=== PATIENT | female | born 1965 | race Caucasian/White ===

== ENCOUNTER 2018-12-02 10:07 | Emergency (ER) | payer MEDICAID ==
[~2018-12-02] VITALS: Ht 162.6 cm; Wt 63.5 kg
[2018-12-02 11:53] LABS: Hematocrit 34.4 % (36.0-46.0); Hemoglobin 11.3 g/dL (12.2-16.2); Mean Corpuscular Hemoglobin 28.6 pg (28.0-32.0); Mean Corpuscular Hgb Conc. 32.9 g/dL (32.0-36.0); Platelet Count (auto) 248 10^3/uL (140-450); Red Blood Cells 3.96 10^6/uL (4.0-5.20); Red Cell Distribution Width 15.8 % (11.8-14.3); White Blood Cell 18.8 10^3/uL (4.4-10.8)
[2018-12-02 12:01] LABS: Basophils % (manual) 0 (0.0-2.0); Blast Cells 0; Eosinophils % (manual) 0 (0-7); Metamyelocytes % 0; Monocytes % (manual) 0 (0-12); Myelocytes % 0; Promyelocytes % 0; Reactive Lymphocytes 0
[2018-12-02 12:06] LABS: Alanine Aminotransferase 19 U/L (13-56); Albumin 1.8 g/dL (3.4-5.0); Anion Gap 10 (5-15); Aspartate Aminotransferase 27 U/L (15-37); BUN/Creatinine Ratio 38.4; Blood Urea Nitrogen 28 mg/dL (7-18); Calcium 8.4 mg/dL (8.5-10.1); Carbon Dioxide 25 mmol/L (21-32); Chloride 90 mmol/L (98-107); GFR African American 108 mL/min; GFR Non-African American 89 mL/min; Glucose 107 mg/dL (74-106); Magnesium 2.2 mg/dL (1.6-2.6); Sodium 125 mmol/L (136-145)
[2018-12-02 12:10] LABS: Alkaline Phosphatase 72 U/L (45-117); Bilirubin, Total 0.6 mg/dL (0.2-1.0); Total Protein 6.7 g/dL (6.4-8.2)
[2018-12-02 12:19] LABS: Potassium 2.8 mmol/L (3.5-5.1)
[2018-12-02 12:56] LABS: Band Neutrophils % (manual) 2; Lymphocytes % (manual) 2 (10.0-50.0)
[2018-12-02] MEDS ORDERED: SODIUM CHLORIDE 0.9% 1,000 ML IV ONE ×2 (13:43)
[2018-12-02] MEDS ORDERED: POTASSIUM CHL 10% (20 MEQ/15ML) 15ml ORAL SOLN PO ONE (14:30)
[2018-12-02] MEDS ORDERED: cefTRIAXone 1GM/50ML D5W 50 ML IV ONE (14:45)
[2018-12-02 18:18] VITALS: BP 131/77
== END 2018-12-02 18:25 | disposition home or self-care (01) ==
LOC: EDBD 10:07 → ER 10:07
DX: J40 Bronchitis, not specified as acute or chronic (principal); E43 Unspecified severe protein-calorie malnutrition; E87.6 Hypokalemia; E87.1 Hypo-osmolality and hyponatremia; E11.9 Type 2 diabetes mellitus without complications; F17.210 Nicotine dependence, cigarettes, uncomplicated; Z68.24 Body mass index [BMI] 24.0-24.9, adult; Z90.49 Acquired absence of other specified parts of digestive tract
CPT/HCPCS: 36415; 71046; 80053; 83735; 84484; 85007; 85027; 93005; 96365; 99284; J0696; J7030

== ENCOUNTER 2018-12-07 14:38 | Emergency (ER) | payer MEDICAID ==
[~2018-12-07] VITALS: Ht 157.5 cm; Wt 61.7 kg
[2018-12-07 15:34] LABS: Basophils # (auto) 0 uL; Basophils % (auto) 0.5 % (0.0-2.0); Eosinophils # (auto) 0.1 uL; Eosinophils % (auto) 1.4 % (0.0-7.0); Hematocrit 36.8 % (36.0-46.0); Hemoglobin 12.1 g/dL (12.2-16.2); Lymphocytes # (auto) 1.7 uL; Lymphocytes % (auto) 18.8 % (10.0-50.0); Mean Corpuscular Hemoglobin 29.1 pg (28.0-32.0); Mean Corpuscular Hgb Conc. 32.9 g/dL (32.0-36.0); Mean Corpuscular Volume 88.5 fL (80.0-100.0); Monocytes # (auto) 0.3 uL; Monocytes % (auto) 2.9 % (0.0-12.0); Neutrophils % (auto) 76.4 % (37.0-80.0); Nucleated Red Blood Cells % 0.3 %; Platelet Count (auto) 384 10^3/uL (140-450); Red Blood Cells 4.16 10^6/uL (4.0-5.20); Red Cell Distribution Width 15.7 % (11.8-14.3); White Blood Cell 9.1 10^3/uL (4.4-10.8)
[2018-12-07 15:38] LABS: Albumin 2.3 g/dL (3.4-5.0); Calcium 8.7 mg/dL (8.5-10.1); Potassium 3.9 mmol/L (3.5-5.1)
[2018-12-07 15:41] LABS: BUN/Creatinine Ratio 17.8; Bilirubin, Total 0.4 mg/dL (0.2-1.0); Total Protein 7.8 g/dL (6.4-8.2)
[2018-12-07 16:01] VITALS: BP 111/71
[2018-12-07 17:41] LABS: Urine Bacteria NONE SEEN /hpf (None Seen); Urine Blood Negative /uL (Negative); Urine Mucus FEW (None Seen); Urine Specific Gravity 1.021 (1.001-1.035); Urine WBC 44 /hpf (0 - 5)
[2018-12-07 17:45] LABS: Alcohol, Urine < 3.0 mg/dL (0-5); Amphetamine Screen, Urine NEGATIVE (NEGATIVE); Barbiturate Scree,Urine NEGATIVE (NEGATIVE); Benzodiazephine Screen, Urine NEGATIVE (NEGATIVE); Cannabinoid Screen, Urine POSITIVE (NEGATIVE); Cocaine Screen, Urine NEGATIVE (NEGATIVE); Opiate Scree,Urine POSITIVE (NEGATIVE); Phencyclidine Screen, Urine NEGATIVE (NEGATIVE)
== END 2018-12-07 18:00 | disposition home or self-care (01) ==
LOC: ER 14:38
DX: N39.0 Urinary tract infection, site not specified (principal); M19.90 Unspecified osteoarthritis, unspecified site; E11.9 Type 2 diabetes mellitus without complications; F17.210 Nicotine dependence, cigarettes, uncomplicated; Z90.49 Acquired absence of other specified parts of digestive tract
CPT/HCPCS: 36415; 80053; 80307; 80329; 81001; 85025